=== PATIENT | male | born 1950 | race Caucasian/White ===

== ENCOUNTER 2020-12-10 11:37 | Emergency (ER) | payer OTHER ==
[~2020-12-10] VITALS: Ht 165.1 cm; Wt 74.8 kg
[2020-12-10] MEDS ORDERED: NS 500 ML IV ONE (12:00)
[2020-12-10 12:13] LABS: BASOPHILS % (AUTO) 0.5 % (0.0-2.0); EOSINOPHILS # (AUTO) 0.1 K/uL (0.0-0.4); EOSINOPHILS % (AUTO) 1.4 % (0.0-4.0); HEMATOCRIT 30.2 % (36-54); HEMOGLOBIN 9.9 g/dL (14.0-18.0); LYMPHOCYTES # (AUTO) 0.8 K/uL (1.0-5.5); LYMPHOCYTES % (AUTO) 15.3 % (20.5-51.5); MEAN CORPUSCULAR HEMOGLOBIN 27 pg (27-31); MEAN CORPUSCULAR HGB CONC 33 % (32-36); MEAN CORPUSCULAR VOLUME 81 fL (79.0-98.0); MONOCYTES # (AUTO) 0.2 K/uL (0.0-1.0); MONOCYTES % (AUTO) 3.7 % (1.7-9.3); NEUTROPHILS # (AUTO) 4.2 K/uL (1.8-7.7); NEUTROPHILS % (AUTO) 79.1 % (40.0-70.0); PLATELET COUNT (AUTO) 165 K/uL (130-430); RED BLOOD CELL COUNT(AUTO) 3.73 MIL/uL (4.2-6.2); RED CELL DISTRIBUTION WIDTH 27.4 % (9.0-15.0); WHITE BLOOD COUNT (AUTO) 5.4 K/uL (4.8-10.8)
[2020-12-10 12:20] LABS: BILIRUBIN,URINE NEGATIVE (NEGATIVE); BLOOD, URINE NEGATIVE (NEGATIVE); CLARITY/URINE CLEAR (CLEAR); COLOR,URINE BROWN (YELLOW); GLUCOSE,URINE NEGATIVE (NEGATIVE); KETONES,URINE NEGATIVE (NEGATIVE); LEUKOCYTE ESTERASE ,URINE NEGATIVE (NEGATIVE); NITRITE, URINE NEGATIVE (NEGATIVE); PROTEIN URINE 1+ (NEGATIVE); UROBILINOGEN,URINE 0.2 (0.2-1.0)
[2020-12-10 12:24] LABS: INR 2.9 (0.80-1.20); PROTHROMBIN TIME 29.1 SECS (9.5-12.5)
[2020-12-10 12:27] LABS: ANION GAP 17 (5-15); CALCIUM 7.6 mg/dL (8.4-11.0); CHLORIDE 106 mmol/L (98-107); CREATININE 5.56 mg/dL (0.55-1.30); GFR AFRICAN AMERICAN 13 mL/min (>90); POTASSIUM 5.1 mmol/L (3.5-5.1); SODIUM SERUM 143 mmol/L (136-145); UREA NITROGEN, BLOOD 63 mg/dL (8-21)
[2020-12-10] MEDS ORDERED: DEXTROSE 50% JECT 50 ML DISP.SYRIN IVP ONE ×2 (12:30→14:00)
[2020-12-10] MEDS ORDERED: DEXTROSE 50% JECT 50 ML DISP.SYRIN ONE (12:35)
[2020-12-10 12:38] LABS: ALANINE AMINOTRANSFERASE 10 U/L (12-78); ALBUMIN 1.9 g/dL (3.4-4.8); ASPARTATE AMINOTRANSFERASE 41 U/L (10-37); DIGOXIN 0.1 ng/mL (0.80-2.00); TOTAL BILIRUBIN 1.2 mg/dL (0.0-1.0)
[2020-12-10 12:40] LABS: GLUCOSE 45 mg/dL (70-99)
[2020-12-10 12:41] LABS: ALCOHOL, BLOOD < 3 mg/dL (<10)
[2020-12-10 12:44] LABS: BARBITURATE, URINE NEGATIVE (NEG <=200); BENZODIAZEPINE, URINE NEGATIVE (NEG <=150); CANNABINOID, URINE NEGATIVE (NEG <=50); COCAINE, URINE NEGATIVE (NEG <=150); METHAMPHETAMINES SCREEN,URINE NEGATIVE (NEG <=500); OPIATE, URINE NEGATIVE (NEG <=100); PHENCYCLIDINE SCREEN,URINE NEGATIVE (NEG <=25); UR TRICYCLIC ANTIDEPRESSANTS NEGATIVE (NEG <=300); URINE AMPHETAMINE NEGATIVE (NEG <=500); URINE METHADONE NEGATIVE (NEG <=200); URINE OXYCODONE SCREEN NEGATIVE (NEG <=100); URINE PROPOXYPHENE SCREEN NEGATIVE (NEG <=300)
[2020-12-10 12:53] LABS: C-REACTIVE PROTEIN QUANT 33.7 mg/dL (0-0.5)
[2020-12-10 12:58] LABS: BACTERIA,URINE None Seen /HPF (None Seen); RBC,URINE 0-3 /HPF (0-3); WBC,URINE 0-3 /HPF (0-3)
[2020-12-10 12:59] LABS: ACETAMINOPHEN 4 ug/mL (1-30)
[2020-12-10 13:02] LABS: ACETONE, SERUM NEGATIVE (NEGATIVE)
[2020-12-10] MEDS ORDERED: NOREPINEPHRINE 4 MG/4 ML VIAL IV ONE (13:25)
[2020-12-10] MEDS ORDERED: NACL 0.9% 1,250 ML IV ONE (13:30)
[2020-12-10] MEDS ORDERED: NOREPINEPHRINE BITARTRATE 4 MG in NS 246 ML IV ONE (13:30)
[2020-12-10] MEDS ORDERED: VANCOMYCIN HCL 1,000 MG in NS 250 ML IV ONE (13:30)
[2020-12-10] MEDS ORDERED: AZITHROMYCIN 500 MG in NS 250 ML IV ONE (13:30)
[2020-12-10] MEDS ORDERED: PIPERACILLIN/TAZO 3.375 GM in NS 50 ML IV ONE (13:30)
[2020-12-10] MEDS ORDERED: AZITHROMYCIN 500 MG/VIAL (ZITHROMAX) IV ONE (13:39)
[2020-12-10] MEDS ORDERED: INSULIN REGULAR, HUMAN 10 UNITS/0.1 ML INJ ONE (14:26)
== END 2020-12-10 14:33 ==
LOC: SED 11:37
DX: I46.9 Cardiac arrest, cause unspecified (principal); R65.21 Severe sepsis with septic shock; J18.9 Pneumonia, unspecified organism; I12.0 Hypertensive chronic kidney disease with stage 5 chronic kidney disease or end stage renal disease; N18.5 Chronic kidney disease, stage 5; E16.2 Hypoglycemia, unspecified; I48.91 Unspecified atrial fibrillation; Y95 Nosocomial condition; Z88.8 Allergy status to other drugs, medicaments and biological substances; Z79.899 Other long term (current) drug therapy; Z99.2 Dependence on renal dialysis; Z20.822 Contact with and (suspected) exposure to COVID-19
CPT/HCPCS: 31500; 36415; 70450; 71045; 76376; 80053; 80162; 80307; 81000; 82009; 82140; 82550; 82962; 83605; 83880; 84484; 85025; 85610; 85730; 86140; 87040; 87081; 87426; 92950; 93005; 96361; 96365; 96368; 96375; 99291; G0480; J0456; J7030; G0481; G0482; J1815